=== PATIENT | female | born 1970 | race African-American/Black ===

== ENCOUNTER 2016-09-04 09:30 | Emergency (ER) | payer OTHER ==
[~2016-09-04] VITALS: Ht 167.6 cm; Wt 78.0 kg
[2016-09-04] MEDS ORDERED: IBUPROFEN 800MG TABLET PO ONE (11:15)
[2016-09-04 11:17] VITALS: BP 144/93
== END 2016-09-04 12:29 | disposition home or self-care (01) ==
LOC: ER 11:40
DX: S92.312A Displaced fracture of first metatarsal bone, left foot, initial encounter for closed fracture (principal); M25.571 Pain in right ankle and joints of right foot; W20.8XXA Other cause of strike by thrown, projected or falling object, initial encounter; Y93.89 Activity, other specified; W01.0XXA Fall on same level from slipping, tripping and stumbling without subsequent striking against object, initial encounter; Y92.098 Other place in other non-institutional residence as the place of occurrence of the external cause
CPT/HCPCS: 73610; 73630; 81025; 99284; Z7610